=== PATIENT | male | born 1945 | race Caucasian/White ===

== ENCOUNTER 2019-07-12 07:39 | Day surgery (SDC) | payer MEDICARE, BC ==
[~2019-07-12 07:39] MED LIST: Lactated Ringers 1,000 ML IV SCH
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
[2019-07-12] MEDS ORDERED: Propofol 200 MG/20 ML SDV ONE (09:05)
[2019-07-12] MEDS ORDERED: Midazolam 1 MG/ML 2 ML SDV ONE (09:05)
--- NOTE | 2019-07-12 09:44 | PCM.OPNOTE ---
- General Post-Op/Procedure Note Date of Surgery/Procedure: 07/12/19 Operative Procedure(s): Colonoscopy Pre Op Diagnosis: Personal history of colon polyps. Desire for colorectal cancer screening. Post-Op Diagnosis: No evidence of colonic neoplasia. Anesthesia Technique: MAC (ASA II) Primary Surgeon: Rolando Valencia Condition: Good Free Text/Narrative:: DICTATION [id number] CPT CODE 86005
[2019-07-12] MEDS ORDERED: Lactated Ringers 1,000 ML IV SCH (09:45)
--- NOTE | 2019-07-12 10:19 | PCM.POSTAN ---
POST ANESTHESIA ASSESSMENT - MENTAL STATUS Mental Status: Alert - VITAL SIGNS Vital Signs: Last Vital Signs Temp 36.3 C 07/12/19 09:42 Pulse 69 07/12/19 09:57 Resp 16 07/12/19 09:57 BP 112/56 L 07/12/19 09:57 Pulse Ox 99 07/12/19 09:57 - RESPIRATORY Respiratory Status: Respiratory Rate WNL, O2 Saturation Stable - CARDIOVASCULAR CV Status: Pulse Rate WNL - GASTROINTESTINAL GI Status: No Symptoms - PAIN Pain Score: 0 - POST OP HYDRATION Hydration Status: Adequate & Stable - OBSERVATIONS Free Text/Narrative:: Awake. Doing well. To DS.
--- NOTE | 2019-07-12 10:57 | OR ---
SURGEON: Rolando Valencia M.D. DATE OF PROCEDURE: 07/12/2019 OPERATION PERFORMED: Colonoscopy. PRIMARY SURGEON: Rolando Valencia MD. ANESTHESIA: MAC. ASA CLASSIFICATION: II. PREOPERATIVE DIAGNOSIS: Personal history of colon polyps. POSTOPERATIVE DIAGNOSIS: No evidence of neoplasia. DESCRIPTION OF PROCEDURE: The patient was taken to the endoscopy room, positioned on the endoscopy table in the left lateral decubitus position. Time-out was called for appropriate identification of the patient and procedure. Monitored anesthesia care was provided. The colonoscope was inserted into the rectum and advanced without difficulty to the cecum where the colonoscope was retroflexed to visualize the ascending colon from below. The colonoscope was then straightened and slowly withdrawn. The cecum, ascending colon, hepatic flexure, transverse colon, splenic flexure, descending colon, sigmoid colon, and rectum were very well visualized. No tumors, polyps, diverticula, or angiodysplastic changes were noted anywhere in the lower gastrointestinal tract. Once the colonoscope was withdrawn to the rectum, it was retroflexed to visualize the anal orifice from above. Again, no tumors or polyps were seen and there were no acute hemorrhoidal changes. The colonoscope was then straightened, the rectum aspirated, and the colonoscope removed. The patient tolerated the procedure well and was taken to recovery room in stable condition. MICHELLE / KENJI /[id number]
--- NOTE | 2019-07-12 11:29 | PCM48HPAN ---
Post Anesthesia Note - EVALUATION WITHIN 48HRS OF ANESTHETIC Vital Signs in Normal Range: Yes Patient Participated in Evaluation: Yes Respiratory Function Stable: Yes Airway Patent: Yes Cardiovascular Function Stable: Yes Hydration Status Stable: Yes Pain Control Satisfactory: Yes Nausea and Vomiting Control Satisfactory: Yes Mental Status Recovered: Yes Vital Signs: Last Vital Signs Temp 97.3 F 07/12/19 09:42 Pulse 69 07/12/19 09:57 Resp 16 07/12/19 09:57 BP 112/56 L 07/12/19 09:57 Pulse Ox 99 07/12/19 09:57
== END 2019-07-12 10:15 | disposition home or self-care (01) ==
LOC: MW.SDS 07:39
PROVIDERS: ATTEND Surgery
DX: Z12.11 Encounter for screening for malignant neoplasm of colon (principal); K21.9 Gastro-esophageal reflux disease without esophagitis; E78.5 Hyperlipidemia, unspecified; M19.049 Primary osteoarthritis, unspecified hand; Z86.010 Personal history of colon polyps; Z98.890 Other specified postprocedural states; Z88.4 Allergy status to anesthetic agent; Z79.82 Long term (current) use of aspirin; Z79.899 Other long term (current) drug therapy; Z90.49 Acquired absence of other specified parts of digestive tract
CPT/HCPCS: G0105; J2250; J2704; J7120